=== PATIENT | female | born 1975 | race Caucasian/White ===

== ENCOUNTER 2017-12-20 12:10 | Emergency (ER) | payer MEDICAID ==
[~2017-12-20] VITALS: Ht 160 cm; Wt 109.8 kg
[2017-12-20 12:31] VITALS: BP 137/86
[2017-12-20] MEDS ORDERED: KETOROLAC TROMETH 60MG/2ML VIAL IM ONE (13:15)
== END 2017-12-20 13:40 | disposition home or self-care (01) ==
LOC: ER 12:10
DX: K04.7 Periapical abscess without sinus (principal); M26.609 Unspecified temporomandibular joint disorder, unspecified side
CPT/HCPCS: 96372; 99283; J1885

== ENCOUNTER 2018-01-02 15:29 | Emergency (ER) | payer MEDICAID ==
[~2018-01-02] VITALS: Ht 160 cm; Wt 109.8 kg
[2018-01-02 15:43] VITALS: BP 137/81
== END 2018-01-02 17:53 | disposition home or self-care (01) ==
LOC: ER 15:34
DX: K04.7 Periapical abscess without sinus (principal); H66.93 Otitis media, unspecified, bilateral